=== PATIENT | male | born 1975 | race Two or more races ===

== ENCOUNTER 2016-11-15 20:08 | Emergency (ER) | payer MEDICAID ==
[~2016-11-15] VITALS: Ht 180.3 cm; Wt 86.2 kg
[2016-11-15 20:28] VITALS: BP 157/68
[2016-11-15] MEDS ORDERED: SULFACETAMIDE SOD 10% OPTH(EYE) SOL 15ML RIGHTEYE ONE (23:45)
== END 2016-11-15 23:45 | disposition home or self-care (01) ==
LOC: ER 20:11
DX: H10.9 Unspecified conjunctivitis (principal); F17.210 Nicotine dependence, cigarettes, uncomplicated